=== PATIENT | female | born 1990 | race Caucasian/White ===

== ENCOUNTER 2023-11-30 12:50 | Emergency (ER) | payer OTHER ==
[~2023-11-30] VITALS: Ht 170.1 cm; Wt 92.5 kg
[2023-11-30] MEDS ORDERED: PREDNISONE20 M1 PO (13:23)
[2023-11-30] MEDS ORDERED: methylPREDNISolone sod succ 125 MG VIAL IM ONE (13:25)
== END 2023-11-30 13:32 | disposition home or self-care (01) ==
LOC: ED 12:50
DX: L23.3 Allergic contact dermatitis due to drugs in contact with skin (principal); T36.4X5A Adverse effect of tetracyclines, initial encounter; Y92.009 Unspecified place in unspecified non-institutional (private) residence as the place of occurrence of the external cause